=== PATIENT | male | born 1935 | race Caucasian/White ===

== ENCOUNTER 2019-11-22 08:31 | Observation (INO) ==
--- NOTE | 2019-10-25 14:28 | PAT Medication Instructions ---
Medication Instructions Date of Service October 25, 2019 Home Medications ascorbic acid (vitamin C) [Vitamin C] 500 mg PO QAM cholecalciferol (vitamin D3) [Vitamin D3] 25 mcg PO QAM cyanocobalamin (vitamin B-12) [Vitamin B-12] 500 mcg PO QAM fish oil-dha-epa 1 cap PO QAM hydrochlorothiazide 12.5 mg PO QAM montelukast 10 mg PO QAM multivitamin 1 tab PO QAM psyllium husk [Metamucil] 1 tbsp PO QAM STOP taking 2 weeks before surgery (or as soon as possible if surgery is within 2 weeks) fish oil-dha-epa 1 cap PO QAM DO NOT take the morning of surgery ascorbic acid (vitamin C) [Vitamin C] 500 mg PO QAM cholecalciferol (vitamin D3) [Vitamin D3] 25 mcg PO QAM cyanocobalamin (vitamin B-12) [Vitamin B-12] 500 mcg PO QAM hydrochlorothiazide 12.5 mg PO QAM montelukast 10 mg PO QAM multivitamin 1 tab PO QAM psyllium husk [Metamucil] 1 tbsp PO QAM Other Notes If you have any questions please call us at [phone] or [phone] or [phone] or [phone]
--- NOTE | 2019-10-28 11:39 | Anesthesiology Consultation ---
Date of Service October 28, 2019 Assessment & Plan (1) Encounter for pre-operative examination: Chart Review Chart Review: Acceptable Risk for Surgery (pending preop Covid testing ) and Patient seen in Pre Admission Testing Per PAT appt on 10/28/19, patient denies recent travel. Educated patient to follow up with surgeon's office regarding Covid testing. Educated on importance of self quarantining, social distancing and wearing mask in public both for the patient and household contacts. Teaching & Discussion Pre-Anesthesia Teaching/Discussion Notes: Instructed NPO after midnight before surgery,except medications with 15 cc of water. Medication instructions provided according to the PAT guidelines. History Surgery Operation Date: 11/22/19 08:50 Proposed Procedures p Right Total Knee Arthroplasty - Colin Candelario MD Height/Weight Height: 6 ft Weight: 94.3 kg Allergies Allergy/AdvReac Type Severity Reaction Status Date / Time No Known Allergies Allergy Unverified 10/21/19 09:39 Medications Home Medications Medication Instructions Recorded Confirmed Last Taken ascorbic acid (vitamin C) [Vitamin 500 mg PO QAM 10/21/19 10/21/19 Unknown C] cholecalciferol (vitamin D3) 25 mcg PO QAM 10/21/19 10/21/19 Unknown [Vitamin D3] cyanocobalamin (vitamin B-12) 500 mcg PO QAM 10/21/19 10/21/19 Unknown [Vitamin B-12] fish oil-dha-epa 1 cap PO QAM 10/21/19 10/21/19 Unknown hydrochlorothiazide 12.5 mg PO QAM 10/21/19 10/21/19 Unknown montelukast 10 mg PO QAM 10/21/19 10/21/19 Unknown multivitamin 1 tab PO QAM 10/21/19 10/21/19 Unknown psyllium husk [Metamucil] 1 tbsp PO QAM 10/21/19 10/21/19 Unknown Past Medical History Medical History BPH (benign prostatic hyperplasia) Hearing deficit BL SANDOVAL History of squamous cell carcinoma Removed from left lip 2017 HTN (hypertension) Exercise / Class Metabolic Activity II 4-5 Yardwork/Stairs/Walk up hill (one flight of stairs- no chest pain or SOB ) Past Family History Family History Other No family history of adverse response to anesthesia Past Surgical History Surgical History History of colonoscopy History of hernia repair as a child History of left knee replacement History of squamous cell carcinoma excision History of tooth extraction Past Anesthesia History No Hx of Anesthesia Complications and No Family Hx of Anesthesia Complications History of PONV No Hx of PONV and No Hx of Motion Sickness Social History Smoking Status: Never smoker Do You Dip or Chew Tobacco: No Hx Alcohol Use: Yes alcohol intake frequency: holidays/special occasions only Hx Substance Use: No substance use type: does not use Review of Systems Patient denies chest pain, shortness of breath, dyspnea on exertion, reflux, cough, wheezing, palpitations. No hx of seizures, stroke, PR, apnea/snoring. No hx of blood clots or blood transfusions Physical Exam Vital Signs VITALS BP 137/79 P 78 TEMP 98.2 SP02 95% RESP 16 Constitutional no acute distress ENMT Mouth: no TMJ clicking Thyromental Distance: > or= 3.5 Finger Breadths (3.5) Mallampati Class: II Neck + limited neck extension (moderate ) Respiratory normal respiratory effort; no respiratory distress Auscultation: lungs clear to auscultation bilaterally; no wheezes Cardiovascular Rate/Rhythm: regular rate and regular rhythm Heart Sounds: no murmur Vessels: no carotid bruit Musculoskeletal Spine: no pain with cervical ROM Neurologic moves all extremities Psychiatric Orientation: alert Testing Laboratory Results 10/28/19 11:55 10/28/19 11:55 PT 10.7 Seconds (9.0-12.0) 10/28/19 11:55 INR 1.0 (0.9-1.1) 10/28/19 11:55 APTT 26.1 Seconds (21.0-31.0) 10/28/19 11:55 Blood Type A Positive 10/28/19 11:55 Antibody Screen NEGATIVE 10/28/19 11:55 Hx of thrombocytopenia in 2011 per records Electrocardiogram Date: 10/28/19 Findings: + NSR @ (70) and + no change from (September 16, 2011 per cardio ) [facility] Chest X-Ray Date: 10/28/19 Findings: + NAD Stable 4 mm calcified granuloma within the left upper lobe. Otherwise, lungs are clear.
[2019-10-28 12:40] LABS: Basophils % (auto) 2.1 %; Eosinophils # (auto) 0.12 K/uL (0-0.5); Eosinophils % (auto) 2.6 %; Hematocrit (blood only) 42.3 % (42-52); Hemoglobin 14.7 g/dL (14.0-18.0); Immature Granulocytes # (auto) 0.03 K/uL (0.00-0.02); Immature Granulocytes % (auto) 0.6 %; Lymphocytes # (auto) 1.32 K/uL (1.2-3.4); Lymphocytes % (auto) 28.1 %; Mean Corpuscular Hemoglobin 36.8 pg (25-34); Mean Corpuscular Hgb Conc 34.8 g/dL (32-36); Mean Platelet Volume 11.9 fL (7.4-10.4); Monocytes # (auto) 0.77 K/uL (0.11-0.59); Monocytes % (auto) 16.4 %; Neutrophils # (auto) 2.36 K/uL (1.4-6.5); Neutrophils % (auto) 50.2 %; Platelet Count 113 K/uL (130-400); RDW Coefficient of Variation 13.2 % (11.5-14.5); RDW Standard Deviation 51.1 fL (36.4-46.3); Red Blood Count 3.99 M/uL (4.7-6.1)
[2019-10-28 12:54] LABS: C Reactive Protein 0.48 mg/dl (0-0.29); Calcium 9.3 mg/dl (8.5-10.1); Est GFR (African American) 83.9; Est GFR (Non-African American) 72.4; Potassium 4.2 mmol/L (3.5-5.1)
[2019-10-28 12:56] LABS: Partial Thromboplastin Ratio 0.9; Partial Thromboplastin Time 26.1 Seconds (21.0-31.0); Prothrombin Time 10.7 Seconds (9.0-12.0)
--- NOTE | 2019-10-28 13:47 | XRay Report ---
XR chest Pre-admission PA/Lat HISTORY: Preop. COMPARISON: Chest 09/16/2011. FINDINGS: Cardiac silhouette is normal in size. No pleural effusions. No pneumothorax. Stable 4 mm ca lcified granuloma within the left upper lobe. Otherwise, lungs are clear. IMPRESSION: No significant change compared to the prior study. No acute process. ACT 112: Negative or not required by law. Electronically signed by: Ck Bonilla M.D. 10/28/2019 1:45 PM
--- NOTE | 2019-10-28 15:19 | Electrocardiogram Report ---
Test Reason : Blood Pressure : / mmHG Vent. Rate : 070 BPM Atrial Rate : 070 BPM P-R Int : 166 ms QRS Dur : 090 ms QT Int : 388 ms P-R-T Axes : 053 -52 015 degrees QTc Int : 419 ms Normal sinus rhythm Left anterior fascicular block Abnormal ECG When compared with ECG of 16-SEP-2011 13:51, No significant change was found Confirmed by Luis Eduardo Cruz ([id number]) on 10/28/2019 3:19:42 PM Referred By: Colin Candelario Confirmed By:Luis Eduardo Cruz
--- NOTE | 2019-11-16 17:57 | History and Physical Report ---
DATE OF ADMISSION: 11/22/2019 CHIEF COMPLAINT: Right knee pain and discomfort. HISTORY OF PRESENT ILLNESS: The patient is an 84-year-old gentleman known to me from previous left knee replacement done in 10/2011. He now presents for right knee treatment. He has got a several year history of gradual increased pain and discomfort in his right knee. It hurts mostly on the medial side of the knee. It gives out on him intermittently. He does wear a brace, which helps him minimally. He is concerned about falling. He has tried different medicines without much relief. It is starting to limit his activities. The more he walks, the more it hurts. He limps more as the day goes on. He would like to have his knee fixed. PAST MEDICAL HISTORY: Significant for: 1. Asthma. 2. BPH. PAST SURGICAL HISTORY: Left knee replacement done 11/04/2011. ALLERGIES: None. CURRENT MEDICINES: Include: 1. Fish oil. 2. Centrum Silver. 3. Vitamin C. 4. Vitamin D3. 5. Hydrochlorothiazide. 6. Montelukast. 7. Metamucil. 8. Vitamin B12. SOCIAL HISTORY: An 84-year-old male. He lives in [place]. He is . Rare alcohol intake. Does not smoke. FAMILY HISTORY: Significant for heart disease. REVIEW OF HISTORY: Negative for diabetes, neurologic problem, vascular problems or bleeding disorders. No chest pain or shortness of breath. No signs of DVT or PE. No known bleeding problems. PHYSICAL EXAMINATION GENERAL: Shows a pleasant elderly male. Looks to be in good health. HEENT: Benign. NECK: Supple, no lymphadenopathy. LUNGS: Clear to auscultation. HEART: Regular rate and rhythm. ABDOMEN: Soft, nontender, nondistended. EXTREMITIES: Grossly neurovascularly intact except as follows. Examination of the right knee reveals the patient ambulates with an antalgic gait. He has got varus alignment to his knee. He has got bony hypertrophy medially. He is tender over the medial joint line. Small knee effusion. Range of motion 5-120. No instability. Examination of the left knee reveals well-healed incision. No swelling. Range of motion 0-125. No instability. X-RAYS: X-rays of the right knee reviewed. Shows advanced right knee DJD. He has got complete loss of his medial joint space. He has got chondrocalcinosis laterally. The left knee replacement looks to be in good position. ASSESSMENT: An 84-year-old male, 8 years out from left knee replacement with advanced right knee degenerative joint disease. He has failed conservative treatment and would like to have his right knee replaced. He is not interested in further conservative care. PLAN: We are going to take him to the operating room and do a right total knee replacement. The risks and benefits of this procedure were explained to the patient including but not limited to DVT, PE, , infection, neurological injury, vascular injury, bleeding problem, pain, limited range of motion, stiffness, failure to relieve symptoms, incomplete relief of symptoms, need for further surgery in future, fracture, leg length inequality, nerve palsy, etc. The patient understands and desires to proceed. Informed consent was obtained. As far as discharge plans, he is planning to be discharged to home using [facility] home health program.
[~2019-11-22 08:31] MED LIST: ACETAMINOPHEN 500 MG TAB PO SCH; BUPIVACAINE 0.5 % 5 MG/1 ML PF 10ML VIAL ONE; BUPIVACAINE LIPOSOME/PF 266 MG, BUPIVACAINE/EPINEPHRINE 50 ML, SODIUM CHLORIDE 0.9% 30 ... INFIL SCH; BUPIVACAINE/EPINEPHRINE 0.25% 1:200,000 30 ML VIAL ONE; CEFAZOLIN 2000MG 2,000 MG/15 ML SYR IV SCH; FAMOTIDINE 20 MG TAB PO SCH; GABAPENTIN 300 MG CAP PO SCH; LR 500ML BOLUS, THEN 15ML/HR IV SCH; LR 60ML/HR IV SCH; METOCLOPRAMIDE HCL 10 MG TABLET PO SCH; MISSING PHYSICIAN SIGNATURE ON ORDER SCH; TRANEXAMIC ACID 1,000 MG **IV Pre-op IV SCH
--- NOTE | 2019-11-22 08:44 | History & Physical Bridge Note ---
Date of Service November 22, 2019 History & Physical Bridge Note I have examined the patient, reviewed the History & Physical and in the interval since the performance of the History & Physical I have noted the following changes of clinical significance: no changes noted
[2019-11-22] MEDS ORDERED: PROPOFOL IV EMULSION 10 MG/ML 20 ML VIAL IV ONE ×3 (09:09→12:42)
[2019-11-22] MEDS ORDERED: LIDOCAINE HCL 2% 2 ML VIAL/AMP(20MG/ML) INFIL ONE (09:10)
[2019-11-22] MEDS ORDERED: MIDAZOLAM HCL 1 MG/ML 2ML VIAL ONE (09:10)
[2019-11-22] MEDS ORDERED: ONDANSETRON INJ 2 MG/ML 2 ML VIAL ONE (09:10)
[2019-11-22] MEDS ORDERED: fentaNYL citrate 100 MCG/2 ML VIAL ONE (09:10)
[2019-11-22] MEDS ORDERED: DEXAMETHASONE SOD INJ 4 MG/ML VIAL ONE (09:11)
[2019-11-22] MEDS ORDERED: ACETAMINOPHEN 500 MG TAB ONE (09:28)
[2019-11-22] MEDS ORDERED: METOCLOPRAMIDE HCL 10 MG TABLET ONE (09:28)
[2019-11-22] MEDS ORDERED: GABAPENTIN 300 MG CAP ONE (09:29)
[2019-11-22] MEDS ORDERED: FAMOTIDINE 20 MG TAB ONE (09:29)
[2019-11-22] MEDS ORDERED: CEFAZOLIN 2,000 MG/15 ML IV PUSH IV ONE (09:29)
[2019-11-22] MEDS ORDERED: TRANEXAMIC ACID / 0.7% NACL 1000MG/100ML BAG IV ONE (09:29)
[2019-11-22] MEDS ORDERED: fentaNYL citrate 100 MCG/2 ML VIAL IV PRN (10:10)
[2019-11-22] MEDS ORDERED: HYDROmorphone INJ 2 MG/ML SYR/VIAL IV PRN (10:10)
[2019-11-22] MEDS ORDERED: ePHEDrine sulfate 50 MG/ML AMP IV PRN (10:10)
[2019-11-22] MEDS ORDERED: ATROPINE SULFATE 0.1 MG/ML 10ML SYR IV PRN (10:10)
[2019-11-22] MEDS ORDERED: BUPIVACAINE LIPOSOME 1.3% 266 MG/20 ML VIAL ONE (10:57)
[2019-11-22] MEDS ORDERED: BUPIVACAINE/EPINEPHRINE 0.25% 1:200,000 30 ML VIAL ONE (10:57)
[2019-11-22] MEDS ORDERED: BACITRACIN INJ 50,000 UNIT VIAL ONE (10:57)
[2019-11-22] MEDS ORDERED: SODIUM CHLORIDE 0.9% PF 50 ML VIAL ONE (10:57)
[2019-11-22] MEDS ORDERED: ePHEDrine sulfate 50 MG/ML AMP ONE (11:46)
--- NOTE | 2019-11-22 12:48 | Post Operative Brief Note ---
PG Immediate Post Op with CF Date of Surgery November 22, 2019 Pre & Post Diagnosis Operation Date: 11/22/19 10:40 Pre-Op Diagnosis: Right Knee Advanced Degenerative Joint Disease Post-Op Diagnosis: Right Knee Advanced Degenerative Joint Disease I identified the patient and participated in the time-out.: Yes Procedure Operation Date: 11/22/19 10:40 Actual Procedures p Right Total Knee Arthroplasty(Right) - Colin Candelario MD Surgeon Colin Candelario MD [employer] Conor, PAC Estimated Blood Loss 50 Findings Consistent with Post-Op Diagnosis Fluids 1400 cc Specimens Specimen Description: A. Right Knee Bone and Tissue Drains Molina Catheter Anesthesia Type Spinal MAC Complications none Disposition Disposition: Recovery Room
--- NOTE | 2019-11-22 13:00 | Operative Report ---
Post Operative Report Pre & Post Diagnosis Operation Date: 11/22/19 10:40 Pre-Op Diagnosis: Right Knee Advanced Degenerative Joint Disease Post-Op Diagnosis: Right Knee Advanced Degenerative Joint Disease I identified the patient and participated in the time-out.: Yes Procedure Operation Date: 11/22/19 10:40 Actual Procedures p Right Total Knee Arthroplasty(Right) - Colin Candelario MD Surgeon Colin Candelario MD [employer] Conor, PAC Estimated Blood Loss 50 Findings Consistent with Post-Op Diagnosis Operative findings revealed advanced right knee DJD with extensive grade 4 [id number] disease of the medial and patellofemoral compartments. He had some spotty changes in the lateral compartment. He had a varus deformity to his knee with a moderate-sized joint effusion. Fluids 1400 cc. Specimens Right knee sent for pathology. Drains None. Anesthesia Type Spinal MAC Complications none Disposition Accompanied Patient To Recovery: No Disposition: Recovery Room Indications Patient is an 84-year-old gentleman is had a long history of knee problems. He underwent a left knee replacement about 8 years ago and is done well from this. Over the past 5 to 10 years he developed increased pain discomfort in his right knee which became less responsive to conservative care. X-ray showed advanced DJD. He elected proceed with total knee arthroplasty. Description of Procedure Operative implants consist of: 1. Biomet Vanguard size 72.5 right posterior stabilized femoral component. 2. Biomet size 75 tibial tray. 3. 10 mm posterior stabilized polyethylene insert. 4. 31 x 8 all poly-patella. Patient was taken to the operating room identified and placed on the operating room table in supine position. All contractors were properly padded. IV antibiotics arrived by anesthesia team. Spinal anesthetic and abductor canal block had been provided in the holding area. Molina catheter was placed in sterile fashion. Right thigh turn was then placed in the right lower extremities and prepped and draped in usual sterile fashion. The right leg was elevated exsanguinated with use of an Esmarch and turn was placed at 300 mmHg. An anterior approach to the right knee was then performed through a longitudinal incision centered over the patella. Sharp dissection was got through subcutaneous this down to the extensor mechanism. A medial parapatellar arthrotomy incision was made. Some subperiosteal dissection was c arried out medially. The fat pad was resected from each patella tendon. The lateral patellofemoral ligament was released. The patella was subluxated laterally and the knee was flexed. The osteophytes were taken off distal femur. The ACL and PCL were then released from distal femur and the tibia subluxate anteriorly. The external tibial alignment jig was then placed in the interface the tibia and adjusted 14 mm medially. Proximal tibial cut was made remove about 1 to 2 mm of bone from most efficient aspect the medial tibial plateau. Some osteophytes taken off medial and posterior medially. The tibia sized to a size 75. Attention drawn the femur. The distal femur then with a sharp drill. Intramedullary canal was suction. A right 6 degree valgus cutting guide was placed. Distal femoral cutting block was pinned in place. The distal femoral cut was made to take an additional 3 mm of bone off distal femur. The femur was then sized to a size 72.5. We did downsize this about a half a size. The AP cutting block was pinned parallel to the epicondylar axis which was 3 degrees of external rotation. The anterior cut, anterior chamfer, posterior cut, posterior chamfer cuts were made. Box cutting guide was placed in a just slight lateral box cut was made. The knee was flexed. The remnants of the medial lateral menisci were excised. The osteophytes were taken off the posterior aspect the femur. A trial femoral component was placed. The tibial tray was pinned in maximum external rotation and the drill and stem punch were used to create defect in proximal tip for the tibial tray. The knee was then trialed and the 10 mm insert fit most appropriately. Attention drawn the patella. Patella was cleaned of all soft tissues. Patella thickness measured 23 mm in thickness was cut down to 15. Was sized to a size 31 patella. Locals were drilled for 31 patella. The lateral osteophyte is moved. Patella button was placed. Knee was taken through range of motion patella tracked nicely with no thumbs test. Attention drawn to place the permanent components. All trial components removed. A bone plug was placed in the distal femur limit blood loss. A double batch Palacos G cement was mixed. A Biomet DITTO.comguard size 72.5 right posterior stabilized femoral component, a size 75 tibial tray, a 10 mm posterior stabilized polyethylene insert, and a 31 x 8 all poly-patella then cemented in place. Knee was brought out into full extension total cement hardened. Final cement check was then performed. The pericapsular tissues were injected with total 100 cc of combination of 20 cc of Exparel, 30 cc normal saline, 50 cc of quarter percent Marcaine with epinephrine. Patient did receive 1 g tranexamic acid per the tech was then let down for final tourniquet time of 56 minutes. Hemostasis surgery was electrocautery. The wound was once again irrigated. The extensor mechanism closed with combination 1 PDS suture and #1 Vicryl suture in a [id number] fashion. Extensor mechanism checked found to be intact the subcutaneous tissue then closed with 2 Dexon suture in a buried interrupted fashion skin was closed skin gris. Leg was then cleaned dried and sterile dressed composed Xeroform, 4 x 4's, sterile cast padding, Wesly bandage were applied. Patient then transferred to the recovery room in stable condition. The patient tolerated the procedure well and there were no complications. Leonardo Perdomo, my physician health care legal assistant, was present for the entire procedure. His assistance was essential to proper patient positioning, prepping and draping, elizabeth rgical exposure, performing the technical aspects of the operation, placing the implants, closure of the wound, and placement of the sterile bandage. I attest to the content of the Intraoperative Record and any orders documented therein. Any exceptions are noted below.
--- NOTE | 2019-11-22 13:31 | XRay Report ---
XR knee RT 1 or 2V routine CLINICAL HISTORY: Surgical Post Op COMPARISON: None. DISCUSSION: There are postsurgical changes of a total right knee arthroplasty and patellar resurfacin g. The femoral tibial components appear well seated. Overlying skin gris are evident. There is gas in the soft tissues consistent with recent surgery. IMPRESSION: Postsurgical changes of a total right knee arthroplasty ACT 112: Negative or not required by law. Electronically signed by: Luciano Mcconnell M.D. 11/22/2019 1:30 PM
[2019-11-22] MEDS ORDERED: METOCLOPRAMIDE HCL INJ 5 MG/ML 2 ML VIAL IV PRN (13:48)
[2019-11-22] MEDS ORDERED: HYDROmorphone INJ 0.5 MG/0.5 ML SYR IV PRN (13:48)
[2019-11-22] MEDS ORDERED: ONDANSETRON INJ 2 MG/ML 2 ML VIAL IV PRN (13:48)
[2019-11-22] MEDS ORDERED: TAMSULOSIN HCL 0.4 MG CAP PO PRN (13:48)
[2019-11-22] MEDS ORDERED: MAGNESIUM HYDROXIDE SUSP 30 ML UDC PO PRN (13:48)
[2019-11-22] MEDS ORDERED: NALOXONE HCL 0.4 MG/1 ML VIAL/CARP IV PRN (13:48)
[2019-11-22] MEDS ORDERED: TRAMADOL HCL 50 MG TABLET PO PRN (13:48)
[2019-11-22] MEDS ORDERED: bisacodyL 10 MG SUPP PR PRN (13:48)
[2019-11-22] MEDS ORDERED: ALUMINUM/MAGNESIUM SUSP 30 ML UDC PO PRN (13:48)
--- NOTE | 2019-11-22 14:05 | Anesthesia Procedure Note ---
Date of Service November 22, 2019 Anesthesia Post Epidural Note Vital Signs Vital Signs: Temp Pulse Resp BP Pulse Ox 36.7 C 81 18 132/72 94 11/22/19 13:36 11/22/19 13:36 11/22/19 13:36 11/22/19 13:36 11/22/19 13:36 Notes Mental Status: alert / awake / arousable and participated in evaluation Patient Amnestic to Procedure: Yes Nausea / Vomiting: adequately controlled Pain: adequately controlled Airway Patency, RR, SpO2: stable & adequate BP & HR: stable & adequate Hydration State: stable & adequate Anesthetic Complications: no major complications apparent and Pt Satisfied with anesthetic care
[2019-11-22] MEDS: SODIUM CHLORIDE 0.9% 1000ML 1,000 ML IV SCH (16:36)
[2019-11-22] MEDS: FERROUS GLUCONATE 324 MG TAB PO SCH (17:32)
[2019-11-22] MEDS: ASCORBIC ACID 500 MG TAB PO SCH (17:32)
[2019-11-22] MEDS: KETOROLAC TROMETHAMINE 15 MG/ML VIAL IV SCH ×2 (17:56→23:50)
[2019-11-22] MEDS ORDERED: TRANEXAMIC ACID / 0.7% NACL 1,000 MG/100 ML BAG IV SCH (19:00)
[2019-11-22] MEDS: CEFAZOLIN 2000MG 2,000 MG/15 ML SYR IV SCH (19:22)
[2019-11-22] MEDS: ACETAMINOPHEN 500 MG TAB PO SCH (21:18)
[2019-11-22] MEDS: DOCUSATE SODIUM 100 MG CAP PO SCH (21:18)
[2019-11-22] MEDS: MONTELUKAST SODIUM 10 MG TABLET PO SCH (21:18)
[2019-11-22] MEDS: SENNA 8.6 MG TAB PO SCH (21:18)
[2019-11-23] MEDS: CEFAZOLIN 2000MG 2,000 MG/15 ML SYR IV SCH (03:40)
[2019-11-23] MEDS: KETOROLAC TROMETHAMINE 15 MG/ML VIAL IV SCH ×4 (05:17→23:14)
[2019-11-23] MEDS: ACETAMINOPHEN 500 MG TAB PO SCH ×3 (05:17→21:12)
[2019-11-23] MEDS: SODIUM CHLORIDE 0.9% 1000ML 1,000 ML IV SCH (06:15)
[2019-11-23 07:36] LABS: Hematocrit (blood only) 32.6 % (42-52); Mean Corpuscular Hemoglobin 36.1 pg (25-34); Mean Corpuscular Hgb Conc 33.7 g/dL (32-36); Mean Corpuscular Volume 106.9 fL (80-100); Mean Platelet Volume 10.7 fL (7.4-10.4); Platelet Count 118 K/uL (130-400); RDW Coefficient of Variation 13.3 % (11.5-14.5); RDW Standard Deviation 51.6 fL (36.4-46.3); Red Blood Count 3.05 M/uL (4.7-6.1); White Blood Count 13.72 K/uL (4.8-10.8)
[2019-11-23 08:04] LABS: BUN Creatinine Ratio 16.5 (10-20); Calcium 7.9 mg/dl (8.5-10.1); Creatinine Clr Calc Pharmacy 63.7 ml/min; Est GFR (African American) 74.5; Est GFR (Non-African American) 64.3; Potassium 4.2 mmol/L (3.5-5.1)
[2019-11-23] MEDS ORDERED: NON-FORMULARY MEDICATION (Ascorbic Acid (Vitamin C) [Vitamin C] 500 MG) PO SCH (09:00)
[2019-11-23] MEDS ORDERED: MULTIVITAMIN TAB PO SCH (09:00)
[2019-11-23] MEDS: CHOLECALCIFEROL 1,000 UNITS 25 MCG TAB PO SCH (09:03)
[2019-11-23] MEDS: ASCORBIC ACID 500 MG TAB PO SCH ×2 (09:03→17:23)
[2019-11-23] MEDS: MULTIVITAMIN TAB PO SCH (09:03)
[2019-11-23] MEDS: FERROUS GLUCONATE 324 MG TAB PO SCH ×2 (09:03→17:23)
[2019-11-23] MEDS: PSYLLIUM 58.6% POWDER PACKET PO SCH (09:03)
[2019-11-23] MEDS: DOCUSATE SODIUM 100 MG CAP PO SCH ×2 (09:03→21:12)
--- NOTE | 2019-11-23 09:03 | Progress Notes ---
DATE: 11/23/2019 SUBJECTIVE: An 84-year-old gentleman postop day 1 from right knee replacement. He is doing pretty well. Fairly minor pain. No chest pain or shortness of breath. Not feeling dizzy or lightheaded. OBJECTIVE: VITAL SIGNS: Temperature 36.6. Vital signs stable. GENERAL: Shows a pleasant elderly male. He is sitting up in bed, looks comfortable. LUNGS: Clear to auscultation. HEART: Has a regular rate and rhythm. ABDOMEN: Soft, nontender, nondistended. EXTREMITIES: Grossly neurovascularly intact except as follows. Examination of the right leg reveals the leg to be well aligned. Dressing is clean, dry, and intact. He can dorsiflex and plantarflex his foot appropriately. He has got brisk refill. LABORATORY DATA: Hemoglobin 11.0. Hematocrit 32.6. White cell count 13.72. Electrolytes are pending. ASSESSMENT: An 84-year-old gentleman postop day 1 from right knee replacement, doing pretty well. His pain is controlled. He is neurologically intact. PLAN: 1. DVT prophylaxis including thigh-high TEDs, SCDs, and aspirin twice a day. 2. PT/OT. Weight bear as tolerated. Right total knee protocol. 3. Pain control, doing well with current pain regimen. 4. Disposition: Plan to discharge to home with some home health once adequately recovered and medically stable.
[2019-11-23] MEDS: CYANOCOBALAMIN 500 MCG TABLET (VITAMIN B-12) PO SCH (09:04)
[2019-11-23] MEDS: hydroCHLOROthiazide 25 MG TAB PO SCH (09:04)
[2019-11-23] MEDS: ASPIRIN 81 MG ECTAB PO SCH (09:58)
[2019-11-23] MEDS: SENNA 8.6 MG TAB PO SCH (21:12)
[2019-11-23] MEDS: MONTELUKAST SODIUM 10 MG TABLET PO SCH (21:12)
[2019-11-24] MEDS: KETOROLAC TROMETHAMINE 15 MG/ML VIAL IV SCH (05:54)
[2019-11-24] MEDS: ACETAMINOPHEN 500 MG TAB PO SCH (05:54)
[2019-11-24] MEDS: MULTIVITAMIN TAB PO SCH (08:26)
[2019-11-24] MEDS: ASCORBIC ACID 500 MG TAB PO SCH (08:26)
[2019-11-24] MEDS: ASPIRIN 81 MG ECTAB PO SCH (08:26)
[2019-11-24] MEDS: PSYLLIUM 58.6% POWDER PACKET PO SCH (08:26)
[2019-11-24] MEDS: CHOLECALCIFEROL 1,000 UNITS 25 MCG TAB PO SCH (08:26)
[2019-11-24] MEDS: FERROUS GLUCONATE 324 MG TAB PO SCH (08:27)
[2019-11-24] MEDS: CYANOCOBALAMIN 500 MCG TABLET (VITAMIN B-12) PO SCH (08:27)
[2019-11-24] MEDS: hydroCHLOROthiazide 25 MG TAB PO SCH (08:27)
[2019-11-24] MEDS: DOCUSATE SODIUM 100 MG CAP PO SCH (08:27)
--- NOTE | 2019-11-24 08:52 | Orthopedic Progress Note ---
Date of Service November 24, 2019 Assessment & Plan (1) Right knee DJD: Continue plan of care. Stable for discharge today. 1. DVT prophylaxis including thigh-high TEDs, SCDs, and aspirin twice a day. 2. PT/OT. Continue at home. Weight bear as tolerated. Left total knee protocol. 3. Pain control, doing well with current pain regimen. 4. Disposition: Plan to discharge to home today with some home health Admission and Anticipated Discharge Date Admission Date: November 22, 2019 Subjective Sitting at the bedside chair. Reports pain is tolerable. Has not seen physical therapy yet, wants to go home. Review of Systems Review of Systems: All systems reviewed & are unremarkable except as noted in HPI & below Physical Exam Physical Exam: Right lower extremity: No significant edema. Mild dried drainage onto his SHY hose, as expected. Active range of motion -5 to 100 degrees. Positive dorsiflexion/plantarflexion. Neurovascular intact. Constitutional: well developed and well nourished; no acute distress and not intoxicated appearing ENMT: external ear and nose normal, oropharynx normal Respiratory: normal respiratory effort; no respiratory distress Cardiovascular: Extremities: normal capillary refill; no edema Skin: no rashes, warm and dry Psychiatric: A+Ox3, euthymic affect Results & Data ([facility]) Vital Signs (Past 12 Hours) Vital Signs Temp Pulse Resp BP Pulse Ox 11/24/19 08:24 37.1 C 79 18 150/84 H 95 11/24/19 07:36 37.1 C 79 18 150/84 H 95 11/23/19 23:16 37.4 C 80 14 149/78 H PG Care Time/CCT Total # of Minutes Spent Total Time Spent with Patient: Total time spent is greater than 50% in coordination of care (as documented) at patient's floor/unit and/or counseling patient: Coding Level of Care Code None Diagnoses Right knee DJD M17.11
--- NOTE | 2019-11-24 13:56 | Orthopedic Consultation ---
Date of Consultation November 24, 2019 History of Present Illness Attending Physician: Colin Candelario MD Allergies Allergy/AdvReac Type Severity Reaction Status Date / Time No Known Allergies Allergy Verified 11/22/19 09:30 Home Medications Home Medications Medication Instructions Recorded Confirmed Type Metamucil 1 tbsp PO QAM 10/21/19 11/22/19 History ascorbic acid (vitamin C) [Vitamin 500 mg PO QAM 10/21/19 11/22/19 History C] cholecalciferol (vitamin D3) 25 mcg PO QAM 10/21/19 11/22/19 History [Vitamin D3] cyanocobalamin (vitamin B-12) 500 mcg PO QAM 10/21/19 11/22/19 History [Vitamin B-12] fish oil-dha-epa 1 cap PO QAM 10/21/19 11/22/19 History hydrochlorothiazide 12.5 mg PO QAM 10/21/19 11/22/19 History montelukast 10 mg PO QAM 10/21/19 11/22/19 History multivitamin 1 tab PO QAM 10/21/19 11/22/19 History acetaminophen 1,000 mg PO Q8 30 Days #180 tab 11/23/19 Rx aspirin 81 mg PO QAM 45 Days #45 tab 11/23/19 Rx tramadol 50 - 100 mg PO Q6H PRN #40 tab 11/23/19 Rx Patient History Medical History BPH (benign prostatic hyperplasia) Hearing deficit BL SANDOVAL History of squamous cell carcinoma Removed from left lip 2017 HTN (hypertension) Surgical History History of colonoscopy History of hernia repair as a child History of left knee replacement History of squamous cell carcinoma excision History of tooth extraction Family History Other No family history of adverse response to anesthesia Social History Smoking Status: Never smoker Second Hand Exposure: No; Hx Alcohol Use: Yes Hx Substance Use: No Preferred Language: Danish Communication Ability: Effective Pharmacy Salesperson Required: No Beliefs That Will Affect Care: None marital status: Current Living Situation: Spouse Feels Safe at Home: Yes Results & Data ([facility]) Vital Signs (Past 12 Hours) Vital Signs Temp Pulse Resp BP Pulse Ox 11/24/19 08:24 37.1 C 79 18 150/84 H 95 11/24/19 07:36 37.1 C 79 18 150/84 H 95 11/23/19 23:16 37.4 C 80 14 149/78 H PG Care Time/CCT Total # of Minutes Spent Total Time Spent with Patient: Total time spent is greater than 50% in coordination of care (as documented) at patient's floor/unit and/or counseling patient: Coding Level of Care Code 94523 Office/Outpt Visit, Est
--- NOTE | 2019-11-29 08:25 | Discharge Summary ---
Date of Service November 29, 2019 Admission HPI Per Admitting Provider Documented in the H & P Admission Exam (Per Admitting) Constitutional Documented in the H & P Discharge Data Consultations 11/22/19 13:48 Consult Case Management - Discharge Planning Routine Procedures Performed Operation Date: 11/22/19 10:40 Actual Procedures p Right Total Knee Arthroplasty(Right) - Colin Candelario MD Hospital Course (1) Status post total right knee replacement: This patient is a 84 year old male admitted on 11/22/19 and underwent right total knee arthroplasty. He tolerated the procedure well and there were no complications. Transferred to the PACU post op and later to the orthopedic floor for further care. He was given ancef for antibiotic prophylaxis. He was also given SHY stockings, SCDs, and aspirin for DVT prophylaxis. Hemoglobin, hematocrit, and vital signs were monitored during his hospital stay and remained stable. Did not require any blood transfusions. There were no complications during his hospital stay. By post op day #2 the patient was tolerating a regular diet, pain was reasonably controlled with oral pain medicine, and he was participating in physical therapy. On post op day #2 the patient was discharged home and set up with home health care. He was given printed discharge instructions including prescriptions for extra strength tylenol, aspirin, and tramadol. Continue physical therapy, weight bearing as tolerated. Continue SHY stockings. Follow up approximately 2 weeks post op or sooner if there are problems or concerns. Coding Level of Care Code None Diagnoses Status post total right knee replacement Z96.651
== END 2019-11-24 11:31 | disposition home or self-care (01) ==
LOC: 3E 08:31 → ASU 08:31
DX: M17.11 Unilateral primary osteoarthritis, right knee; Z79.899 Other long term (current) drug therapy; J45.909 Unspecified asthma, uncomplicated; Z11.59 Encounter for screening for other viral diseases; N40.0 Benign prostatic hyperplasia without lower urinary tract symptoms; I10 Essential (primary) hypertension